=== PATIENT | male | born 1980 | race Caucasian/White ===

== ENCOUNTER 2023-11-08 18:50 | Emergency (ER) | payer OTHER ==
[2023-11-08 19:08] VITALS: BP 138/94; TEMP 97.9; O2SAT 99
[2023-11-08] MEDS ORDERED: TYLENOL 325 MG ONE (19:25)
[2023-11-08] MEDS: TYLENOL 325 MG PO ONE (19:26)
--- NOTE | 2023-11-08 19:48 | ERPHSYRPT ---
- History of Present Illness Time Seen by Provider: 11/08/23 19:07 Source: patient Exam Limitations: no limitations Physician History: 42-year-old male presents to our ED for evaluation of head injury. Patient states he was working and hit his head on a component of the vehicle. Patient states that component Had cooling fans which caused laceration to scalp. No active bleeding. On exam patient has superficial scalp lacerations. However patient complains of a significant headache rated 7 out of 10. No neck pain. Cervical spine cleared clinically. Patient is not on blood thinners. Patient is otherwise healthy. He voices no other complaints or concerns at this time. Portions of this note were created with voice recognition technology. There may be grammatical, spelling, punctuation or sound alike errors Timing/Duration: today Severity: moderate Modifying Factors: Improves With: other (Palpation) Associated Symptoms: other (Headache) Allergies/Adverse Reactions: No Known Drug Allergies Allergy (Verified 11/08/23 19:08) Home Medications: PANTOPRAZOLE 40 mg Tablet [Protonix 40MG Tablet] 40 mg PO DAILY 11/08/23 [History] - Review of Systems Constitutional: No Symptoms, No Fever, No Chills Eyes: No Symptoms Ears, Nose, & Throat: No Symptoms Respiratory: No Symptoms, No Cough, No Dyspnea Cardiac: No Symptoms, No Chest Pain, No Edema, No Syncope Abdominal/Gastrointestinal: No Symptoms, No Abdominal Pain, No Nausea, No Vomiting, No Diarrhea Genitourinary Symptoms: No Symptoms, No Dysuria Musculoskeletal: No Symptoms, No Back Pain, No Neck Pain Skin: No Symptoms, No Rash Neurological: No Symptoms, No Dizziness, No Focal Weakness, No Sensory Changes Psychological: No Symptoms Endocrine: No Symptoms Hematologic/Lymphatic: No Symptoms Immunological/Allergic: No Symptoms All Other Systems: Reviewed and Negative - Nursing Vital Signs Nursing Vital Signs: Initial Vital Signs Temperature 97.9 F 11/08/23 18:58 Pulse Rate 71 11/08/23 18:58 Blood Pressure 138/94 11/08/23 18:58 O2 Sat by Pulse Oximetry 99 11/08/23 18:58 Pain Scale Pain Intensity 7 - Physical Exam General Appearance: no apparent distress, alert Eye Exam: PERRL/EOMI, eyes nml inspection Ears, Nose, Throat Exam: normal ENT inspection, TMs normal, pharynx normal, moist mucous membranes Neck Exam: normal inspection, non-tender, supple, full range of motion Respiratory Exam: normal breath sounds, lungs clear, airway intact, No respiratory distress Cardiovascular Exam: regular rate/rhythm, normal heart sounds, normal peripheral pulses Gastrointestinal/Abdomen Exam: soft, normal bowel sounds, No tenderness, No mass Back Exam: normal inspection, normal range of motion, No CVA tenderness, No vertebral tenderness Extremity Exam: normal inspection, normal range of motion, pelvis stable Neurologic Exam: alert, oriented x 3, cooperative, normal mood/affect, nml cerebellar function, nml station & gait, sensation nml, No motor deficits Skin Exam: normal color, warm, dry, No rash Lymphatic Exam: No adenopathy SpO2 Interpretation: normal SpO2: 99 O2 Delivery: Room Air - Course Nursing assessment & vital signs reviewed: Yes - CT Exams Head CT Interpretation: Tele-radiologist Report (Normal CT head) Ordered Tests: Active Orders 24 hr Category Date Time Status HEAD WITHOUT CONTRAST [CT] Stat Exams 11/08/23 19:07 Taken Medication Summary Discontinued Medications Generic Name Dose Route Start Last Admin Trade Name Jm PRN Reason Stop Dose Admin Acetaminophen 975 mg 11/08/23 19:08 11/08/23 19:26 Acetaminophen 325 Mg Tablet PO 11/08/23 19:09 975 mg STAT ONE Administration Acetaminophen Confirm 11/08/23 19:25 Acetaminophen 325 Mg Tablet Administered 11/08/23 19:26 Dose 975 mg .ROUTE .[employer] ONE - Progress Progress: improved Progress Note: 42-year-old male presents to the emergency department for evaluation of scalp laceration. Patient was working and injured his head on a vehicle component. Injury occurred just prior to arrival. Physical exam reveals several parallel superficial lacerations to the anterior aspect of patient's scalp. No LOC. Cervical spine cleared clinically. Patient elected not to have the lacerations repaired as they were superficial and the skin edges well-approximated. CT head ordered secondary to headache. CT head negative for acute intracranial pathology. Patient received Tylenol for pain control. Patient reassessed. Repeat neuroexam logical exam within normal limits. Headache significantly improved. Patient states he is ready for discharge. No indication for further workup at this time. Will discharge home. Patient voices no other complaints or concerns at this time. Portions of this note were created with voice recognition technology. There may be grammatical, spelling, punctuation or sound alike errors Complexity problem addressed is moderate acute complicated. No critical care time. Complexity data 11/08/23 19:12 Counseled pt/family regarding: diagnosis, need for follow-up, rad results - Departure Departure Disposition: Home Clinical Impression: Head injury, Superficial laceration of scalp, Headache Condition: Stable Critical Care Time: No Additional Instructions: Discharge/Care Plan SUKHWINDER ANAYA was seen on 11/08/23 in the Emergency Room. The patient was counseled regarding Diagnosis,Lab results, Imaging studies, need for follow up and when to return to the Emergency Room. Prescriptions given: Discharge Note I have spoken with the patient and/or caregivers. I have explained the patient's condition, diagnosis and treatment plan based on the information available to me at this time. I have answered the patient's and/or caregiver's questions and addressed any concerns. The patient and/or caregivers have as good understanding of the patient's diagnosis, condition and treatment plan as can be expected at this point. The vital signs have been stable. The patient's condition is stable and appropriate for discharge from the emergency department. The patient will pursue further outpatient evaluation with the primary care physician or other designated or consulting physician as outlined in the discharge instructions. The patient and/or caregivers are agreeable to this plan of care and follow-up instructions have been explained in detail. The patient and/or caregivers have received these instruction. The patient/and or caregivers are aware that any significant change in condition or worsening of symptoms should prompt an immediate return to this or the closest emergency department or call 911.
[2023-11-08] MEDS ORDERED: BACIGUENT PACKET ONE (20:45)
[2023-11-08 20:47] VITALS: PULSE 67; RESP 18
--- NOTE | 2023-11-09 08:34 | XRAY ---
Indication: Head injury. Multiple contiguous axial images obtained through the head without contrast. Comparison: None Normal appearing brain parenchyma, ventricles, and bony calvarium. Visualized paranasal sinuses and mastoid air cells are clear. Impression: Normal CT head without contrast exam.
== END 2023-11-08 20:54 | disposition home or self-care (01) ==
LOC: ED 18:50
DX: S01.01XA Laceration without foreign body of scalp, initial encounter (principal); S09.90XA Unspecified injury of head, initial encounter; W22.8XXA Striking against or struck by other objects, initial encounter; Y99.0 Civilian activity done for income or pay; R51.9 Headache, unspecified
CPT/HCPCS: 70450; 99283; A9270-GY